=== PATIENT | female | born 1995 ===

== ENCOUNTER 2018-05-24 16:33 | Emergency (ER) | payer MEDICAID ==
[2018-05-24 16:41] VITALS: TEMP 99.1; O2SAT 100
--- NOTE | 2018-05-24 17:35 | C.PDOC ---
History Of Present Illness 22 year old female, history of eczema, comes to ER reporting a rash all over her body. Patient states she has been having rash intermittently for one year, and states she has been evaluated by a PMD as well as a bottom hoop driver for the symptom; she has had allergy testing as well and states they were not able to determine the cause of the rash. She reports the rash it pruritic and states today she noted some rash on her tongue which was not present during her previous episodes, prompting the ER visit. She denies any fever, difficulty breathing, and has no other complaints. Time Seen by Provider: 05/24/18 16:56 Chief Complaint (Nursing): Abnormal Skin Integrity History Per: Patient History/Exam Limitations: no limitations Onset/Duration Of Symptoms: Intermittent Episodes, Persistent Current Symptoms Are (Timing): Still Present Quality Of Symptoms: Itching Additional History Per: Patient Past Medical History Reviewed: Historical Data, Nursing Documentation, Vital Signs Vital Signs: Last Vital Signs Temp 99.1 F 05/24/18 16:39 Pulse 95 H 05/24/18 16:39 Resp 16 05/24/18 16:39 BP 142/81 05/24/18 16:39 Pulse Ox 100 05/24/18 16:39 - Medical History Other PMH: eczema Surgical History: No Surg Hx Family History: States: Unknown Family Hx - Social History Hx Alcohol Use: No Hx Substance Use: No - Immunization History Hx Tetanus Toxoid Vaccination: No Hx Influenza Vaccination: No Hx Pneumococcal Vaccination: No Review Of Systems Except As Marked, All Systems Reviewed And Found Negative. Constitutional: Negative for: Fever, Chills Respiratory: Negative for: Shortness of Breath Skin: Positive for: Rash Physical Exam - Physical Exam Appears: Non-toxic, No Acute Distress Skin: Warm, Dry, Rash (hyperpigmented and erythematous discoid lesions noted to face, chest, back and extremities with lacy border.), Other (scaly patches to bilateral antecubital fossa) Head: Atraumatic, Normacephalic Eye(s): bilateral: Normal Inspection, EOMI Nose: Normal Oral Mucosa: Moist Tongue: Other (round erosion noted to lateral tongue) Throat: Normal Neck: Normal ROM, Supple Chest: Symmetrical Cardiovascular: Rhythm Regular Respiratory: Normal Breath Sounds Gastrointestinal/Abdominal: Normal Exam, Soft Back: Normal Inspection Extremity: Bilateral: Atraumatic, Normal Color And Temperature, Normal ROM Neurological/Psych: Oriented x3, Normal Speech ED Course And Treatment O2 Sat by Pulse Oximetry: 100 (RA) Pulse Ox Interpretation: Normal Medical Decision Making Medical Decision Making: Impression: Rash possible erythema multiforme Plan: -- Patient to be discharged home with medications and instructed to follow up with PMD. Disposition Counseled Patient/Family Regarding: Diagnosis, Need For Followup, Rx Given - Disposition Referrals: Yury Orona MD [Staff Provider] - Cesar Reynoso MD [Staff Provider] - Disposition: HOME/ ROUTINE Disposition Time: 17:25 Condition: GOOD Additional Instructions: Follow up with poultry process worker and bottom hoop driver Prescriptions: Colloidal Oatmeal [Eucerin Eczema Relief] 226 gm TP BID #1 cream..g. Desonide 15 gm TP DAILY #1 cream..g. Instructions: Erythema Multiforme (DC) Forms: [facility] (Slovak) - POA Present On Arrival: None - Clinical Impression Clinical Impression: Erythema multiforme - PA / [employer]OLLER / Resident Statement MD/DO has reviewed & agrees with the documentation as recorded. - Scribe Statement The provider has reviewed the documentation as recorded by the Ngozi Morales Provider Attestation: All medical record entries made by the Ngozi were at my direction and personally dictated by me. I have reviewed the chart and agree that the record accurately reflects my personal performance of the history, physical exam, medical decision making, and the department course for this patient. I have also personally directed, reviewed, and agree with the discharge instructions and disposition.
[2018-05-24 17:46] VITALS: BP 138/79; PULSE 90; RESP 18
== END 2018-05-24 17:46 | disposition home or self-care (01) ==
LOC: C.ER 16:33
DX: L51.9 Erythema multiforme, unspecified (principal)